=== PATIENT | male | born 1955 | race Hispanic/Latino ===

== ENCOUNTER 2019-06-22 09:33 | Emergency (ER) | payer MEDICARE ==
[~2019-06-22] VITALS: Ht 167.6 cm; Wt 108.9 kg
[~2019-06-22 09:33] MED LIST: ASPIRIN PO; AVODART0.5 MG PO; COREG6.25 MG PO; FLOMAX0.4 MG PO; LASIX20 MG PO; LOSARTAN POTASS25 MG PO; NAPROXEN250 MG PO; SPIRONOLACTONE25 MG PO
--- OUTSIDE RECORDS SUMMARY | 2019-06-22 09:36 | XMS REPORT ---
Author Author [facility] Address Unknown Phone Unavailable Care Team Providers Care Senior Core Java Developer Name Role Phone TIM COLBERTSHARAD BRAVO Unavailable Mandie NICHOLE Unavailable Unavailable Problems This patient has no known problems. Allergies, Adverse Reactions, Alerts This patient has no known allergies or adverse reactions. Medications This patient has no known medications. Encounters Start Date/Time End Date/Time Encounter Type Admission Type Attending Clinicians Care Facility Care Department Encounter ID 2018-01-11 12:23:00 2018-01-11 12:23:00 Outpatient [facility]EN[facility] GREG[facility] MED [id number] Results Test Description Test Time Test Comments Text Results Atomic Results Result Comments AFB Culture and Smear 2018-04-09 15:39:00 Specimen/Source: Wound/LEFT EARCollected: 02/18/2018 11:26 Status: Final Last Updated: 04/09/2018 15:39 [id number] (Final) (Final) 03/09/18 No acid fast bacill seen on direct smear Culture Result (Final) (Final) 04/09/18 No growth of AFB at six (6) weeks Fungus Culture with Stain 2018-04-05 10:23:00 Specimen/Source: Wound/LEFT EARCollected: 02/18/2018 11:26 Status: Final Last Updated: 04/05/2018 10:23 Fungal Smear Result (Final) (Final) 02/19/18 No yeast or hyphae seen Culture Result (Final) (Final) 04/05/18 No fungus isolated at 6 weeks Culture, Wound Surgical 2018-02-23 08:23:00 Specimen/Source: Wound/LEFT EARCollected: 02/18/2018 11:26 Status: Final Last Updated: 02/23/2018 08:23 Gram Stain (Final) (Final) 02/19/18 No organsims seen, No WBC's seen Culture Result (Final) (Final) 02/19/18 No growth 24 hours 02/20/18 No growth 48 hours 02/21/18 No growth 3 days 02/22/18 No growth 4 days 02/23/18 No growth 5 days 02/23/18 Anaerobic culture:No anaerobes isolated at 5 days Partial Thromboplastin Time 2018-02-18 09:24:00 aPTT (test code=PTT) 29.90 seconds 24.39-37.25 Prothrombin [id number] 09:24:00* Test Item Value Reference Range Comments PT (test code=PT) 10.60 seconds 9.78-13.35 INR (test code=INR) 0.94 Ratio 0.6-1.2 CBC with [id number] 09:10:00* Test Item Value Reference Range Comments WBC (test code=WBC) 9.3 K/cumm 4.4-10.5 RBC (test code=RBC) 4.72 M/cumm 4.10-5.70 Hemoglobin (test code=HGB) 14.5 gm/dL 13.4-17.4 Hematocrit (test code=HCT) 42.5 % 38.7-52.0 MCV (test code=MCV) 90.0 fL 80-100 MCH (test code=MCH) 30.8 pg 27.0-32.5 MCHC (test code=MCHC) 34.2 g/dL 32.0-37.5 RDW (test code=RDW) 12.8 % 11.5-14.5 Platelet Count (test code=PLTCT) 241 K/cumm 140-440 MPV (test code=MPV) 7.5 fL Diff Method (test code=DIFFM) Auto Neutrophil (test code=NEUT) 56.4 % 36-70 Lymphocyte (test code=LYMPH) 35.3 % 12-44 Monocyte (test code=MONO) 6.1 % 0-11 Eosinophil (test code=EOS) 2.0 % 0-7 Basophil (test code=BASO) 0.3 % 0-2 Neutro Abs (test code=ANEUT) 5.3 K/cumm 1.6-7.4 Lymph Abs (test code=ALYMPH) 3.3 K/cumm 0.5-4.6 Eddy Abs (test code=AMONO) 0.6 K/cumm 0.0-1.2 Eos Abs (test code=AEOS) 0.18 K/cumm 0.00-0.74 Baso Abs (test code=ABASO) 0.0 K/cumm 0.00-0.21 Basic Metabolic [id number] 13:34:00* Test Item Value Reference Range Comments Sodium (test code=NA) 137 mmol/L 135-145 Potassium (test code=K) 4.5 mmol/L 3.5-5.1 Chloride (test code=CL) 94 mmol/L 98-105 Carbon Dioxide (test code=CO2) 29 mmol/L 22-29 Glucose (test code=GLU) 122 mg/dL 70-115 Blood Urea Nitrogen (test code=BUN) 20 mg/dL 8-23 Creatinine (test code=CREAT) 1.1 mg/dL 0.7-1.2 Calcium (test code=CA) 10.1 mg/dL 8.3-10.5 BUN/Creatinine Ratio (test code=BCRATIO) 18.2 Anion Gap (test code=AGAP) 14 mmol/L 7-16 Estimated GFR (test code=GFR) >60 mL/min/1.73m2 eGFR (estimated Glomerular Filtration Rate) is an estimated value,calculated from the patient's serum creatinine using the MDRD equation.It is NOT the patient's actual GFR. The eGFR provides a more clinicallyuseful measure of kidney disease than serum creatinine alone.This calculation takes sex and race into account, if the informationis provided. If the race is not provided, and the patient isAfrican-Australian, multiply by 1.212. If sex is not provided, and thepatient is female, multiply by 0.742. Results for patients <18 years ofage have not been validated by the MDRD study and should be interpretedwith caution.eGFR Result Interpretation:eGFR > or=60 is in the Normal RangeeGFR < 60 may mean kidney diseaseeGFR < 15 may mean kidney failureRanges recommended by the National Kidney Foundat ion,http://nkdep.nih.gov Partial Thromboplastin [id number] 13:29:00* Test Item Value Reference Range Comments aPTT (test code=PTT) 30.40 seconds 24.39-37.25 Prothrombin [id number] 13:29:00* Test Item Value Reference Range Comments PT (test code=PT) 10.60 seconds 9.78-13.35 INR (test code=INR) 0.93 Ratio 0.6-1.2 CBC with [id number] 13:06:00* Test Item Value Reference Range Comments WBC (test code=WBC) 9.6 K/cumm 4.4-10.5 RBC (test code=RBC) 5.14 M/cumm 4.10-5.70 Hemoglobin (test code=HGB) 15.5 gm/dL 13.4-17.4 Hematocrit (test code=HCT) 47.6 % 38.7-52.0 MCV (test code=MCV) 92.5 fL 80-100 MCH (test code=MCH) 30.1 pg 27.0-32.5 MCHC (test code=MCHC) 32.6 g/dL 32.0-37.5 RDW (test code=RDW) 12.8 % 11.5-14.5 Platelet Count (test code=PLTCT) 274 K/cumm 140-440 MPV (test code=MPV) 10.1 fL Diff Method (test code=DIFFM) Auto Neutrophil (test code=NEUT) 73.8 % 36-70 Lymphocyte (test code=LYMPH) 19.7 % 12-44 Monocyte (test code=MONO) 5.6 % 0-11 Eosinophil (test code=EOS) 0.6 % 0-7 Basophil (test code=BASO) 0.2 % 0-2 Neutro Abs (test code=ANEUT) 7.1 K/cumm 1.6-7.4 Lymph Abs (test code=ALYMPH) 1.9 K/cumm 0.5-4.6 Eddy Abs (test code=AMONO) 0.5 K/cumm 0.0-1.2 Eos Abs (test code=AEOS) 0.06 K/cumm 0.00-0.74 Baso Abs (test code=ABASO) 0.0 K/cumm 0.00-0.21
[2019-06-22 10:51] LABS: BASOPHILS % 0.1 % (0.0-1.0); BILIRUBIN,URINE NEGATIVE (NEGATIVE); CLARITY,URINE CLEAR (CLEAR); COLOR,URINE YELLOW (YELLOW); EOSINOPHILS % 0.2 % (0.0-6.0); HEMATOCRIT 45.5 % (38.2-49.6); HEMOGLOBIN 15.5 g/dL (14.0-18.0); KETONES,URINE NEGATIVE (NEGATIVE); LEUKOCYTE ESTERASE ,URINE NEGATIVE (NEGATIVE); LYMPHOCYTES # (AUTO) 1.9 (1.0-3.2); LYMPHOCYTES % 21.5 % (18.0-39.1); MEAN CORPUSCULAR HEMOGLOBIN 30.3 pg (28-32); MEAN CORPUSCULAR HGB CONC 34.1 g/dL (31-35); MEAN CORPUSCULAR VOLUME 88.9 fL (81-99); MONOCYTES # (AUTO) 0.7 (0.2-0.8); MONOCYTES % 7.9 % (4.4-11.3); NITRITE,URINE NEGATIVE (NEGATIVE); PLATELET COUNT 269 x10e3/uL (140-360); PROTEIN,URINE DIPSTICK NEGATIVE (NEGATIVE); RED BLOOD COUNT 5.12 x10e6/uL (4.3-5.7); RED CELL DISTRIBUTION WIDTH 13.2 % (11.7-14.4); URINE UROBILINOGEN 0.2 mg/dL (0.2 - 1)
[2019-06-22 10:58] LABS: BACTERIA,URINE FEW /HPF; EPITHELIAL CELLS,URINE FEW /LPF; MUCUS,URINE FEW (RARE); WBC,URINE (MAN) 0-5 /HPF (0-5)
[2019-06-22 11:01] LABS: ALBUMIN 4.5 g/dL (3.5-5.0); ALBUMIN/GLOBULIN RATIO 1.6 (0.8-2.0); ANION GAP 16.2 mmol/L (8-16); CALCIUM 9.5 mg/dL (8.4-10.2); CREATININE, SERUM 1.24 mg/dL (0.72-1.25); POTASSIUM 4.2 mmol/L (3.5-5.1)
--- NOTE | 2019-06-22 12:15 | Diagnostic Imaging Report ---
EXAM: CT Abdomen and Pelvis WITHOUT intravenous contrast INDICATION: Abdominal pain COMPARISON: None. TECHNIQUE: Abdomen and pelvis were scanned utilizing a multidetector helical scanner from the lung base to the pubic symphysis without administration of IV contrast. Coronal and sagittal reformations were obtained. IV CONTRAST: None ORAL CONTRAST: Gastrografin COMPLICATIONS: None RADIATION DOSE: Total DLP: 723.3 mGy*cm Dose modulation, iterative reconstruction, and/or weight based adjustment of the mA/kV was utilized to reduce the radiation dose to as low as reasonably achievable. FINDINGS: LOWER THORAX: Partially visualized pacemaker lead terminating in the right ventricle. HEPATOBILIARY: Hepatic steatosis. No focal liver lesion. Normal gallbladder. SPLEEN: No splenomegaly. PANCREAS: No focal masses or ductal dilatation. ADRENALS: No adrenal nodules. KIDNEYS/URETERS: No hydronephrosis, stones, or solid mass lesions. PELVIC ORGANS/BLADDER: Unremarkable. PERITONEUM / RETROPERITONEUM: No free air or fluid. LYMPH NODES: No lymphadenopathy. VESSELS: Mild scattered atherosclerotic calcifications of the nonaneurysmal abdominal aorta and major branches GI TRACT: Colonic diverticulosis. No CT evidence of diverticulitis. No abnormal bowel wall thickening. No bowel obstruction. Normal appendix. BONES AND SOFT TISSUES: No acute osseous injury. No suspicious lytic or blastic lesions. IMPRESSION: No acute findings in the abdomen or pelvis. Hepatic steatosis. Signed by: Cristi Goodman MD on 06/22/2019 12:12 PM
== END 2019-06-22 12:35 | disposition home or self-care (01) ==
LOC: ER 09:33
DX: R10.11 Right upper quadrant pain (principal)
CPT/HCPCS: 36415; 74176; 80053; 81001; 85025; 99284